=== PATIENT | female | born 1995 | race Caucasian/White ===

== ENCOUNTER 2021-06-26 14:55 | Emergency (ER) | payer OTHER, SELFPAY ==
[2021-06-26 15:03] VITALS: BP 150/109; PULSE 120; RESP 16; TEMP 36.8; O2SAT 99
--- NOTE | 2021-06-26 15:13 | XRR_ITS ---
PROCEDURE INFORMATION: Exam: XR Chest Exam date and time: 06/26/2021 3:13 PM Age: 26 years old Clinical indication: Pain; Angina pectoris; Additional info: Chest pain TECHNIQUE: Imaging protocol: XR of the chest. Views: 1 view. Total images: 1 COMPARISON: No relevant prior studies available. FINDINGS: Lungs: Unremarkable. No consolidation. Pleural spaces: Unremarkable. No pleural effusion. No pneumothorax. Heart/Mediastinum: Unremarkable. No cardiomegaly. Bones/joints: Unremarkable. XR/XR chest 1V portable [id number] IMPRESSION: No acute findings. Radiation Dose CTDIVOL = (mGy): DLP = (mGy-cm)
--- NOTE | 2021-06-26 15:34 | ED_ITS ---
HPI - General Adult General: Chief complaint: Chest Pain Stated complaint: CP RADIATING TO L SIDE OF CHEST INTO NECK, HTN Time Seen by Provider: 06/26/21 15:12 History of Present Illness: HPI narrative: CC: Chest Pain HPI: This is a [26] yo patient hx of smoking presenting to the ED complaining of acute sudden onset intermittent sharp chest pain now constant x 1 day with radiation to the L neck. No associated with shortness of breath, chest pain or dyspnea on exertion. Pain is not tearing in nature and does not radiate to the back. Pain not associated with vomiting or PO intake. Denies any recent sympathomimetic drug use. Patient denies any cough. Denies palpitations, dysphagia, diaphoresis, radiation of pain to bilateral arms, jaw. Denies F/N/V/D. Patient denies any recent immobility, surgery, unilateral leg swelling, or prior PE. Patient denies any orthopnea. Patient reports significant stress at home recently. Patient states that on multiple occasion, she has taken her blood pressure and has noticed that they were elevated. Onset: acutely 1 day ago, symptoms x 3 weeks Duration: ongoing for the last 1 day since 4 am Location: home Severity: mild/moderate Review of Systems Narrative: Constitutional: No fever, no chills. HEENT: No vision changes, no sore throat. CV: +chest pain, no palpitations. PULM: No cough, No dyspnea. GI: No abdominal pain, no N/V/D. : No dysuria, no frequency, no hematuria. MSKEL: No arthralgias, no edema. SKIN: No new rashes, no lesions. NEURO: No headache, no focal weakness. HEME: No easy bleeding or bruising. PSYCH: No change in mood or affect. PFS ED PFSH: Social History Smoking and tobacco status: current every day smoker Physical Exam Narrative: EXAM NARRATIVE: Head: Atraumatic, normocephalic Eyes: PERRL, EOMI, conjunctiva without injection ENT: Throat without erythema, lesions or exudate, MMM, no carotid bruit NECK: Supple, trachea midline, no JVD LUNGS: LCTA CV: RRR, S1,S2, no murmurs, rubs, gallops. 2+ peripheral pulses in UEs ABDOMEN: Soft, nontender, nondistended, BS x4, no rigidity, no guarding, no rebound EXTREMITY: Normal ROM, no pitting edema, no calf tenderness to palpation SKIN: No rash or erythema NEURO: Awake and alert. No focal motor deficits. PSYCH: Normal mood and affect. Course Vital Signs: Vital signs: Vital Signs Temperature 98.3 F 06/26/21 15:03 Pulse Rate 82 06/26/21 18:16 Respiratory Rate 17 06/26/21 18:16 Blood Pressure 128/87 06/26/21 18:16 Pulse Oximetry 100 06/26/21 18:16 MDM - General Adult MDM Narrative: Medical decision making narrative: [26]yo patient w/ hx of smok ing presenting to the ED with evaluation of new onset sharp chest pain x 3 weeks now worsening x 1 day (constant). HDS, pulse 2+ radially bilaterally, no signs of fluid overload, AAOx3, neuro exam intact. Given History and Exam today I have no suspicion for ACS, Pneumothorax, Pneumonia, Pulmonary Embolus, Tamponade, Aortic Dissection or other emergent problems as a cause for this presentation. Workup: ECG, CXR, CBC, BMP, Troponin Interventions: Ariana Findings: ECG: No overt evidence of STEMI, hyperacute T waves, localizable STD or T wave inversions. No evidence of Brugada?s sign, delta wave, epsilon wave, significantly prolonged QTc, or malignant arrhythmia. No Q waves. Other Labs unremarkable for emergent problems. CXR: Without PTX, PNA, or widened mediastinum Last Stress Test: never Last Heart Catheterization: never HEART Score: 0 [4:50pm] On reassessment, the patient is HDS, no complaints of persistent chest pain in the ED after evaluation. ECG is non-ischemic. Workup today is unremarkable. Doubt ACS/PE or other emergent causes of chest pain. Doubt ACS/PE or other emergent causes of chest pain. No suspicion for aortic dissection given no widened mediastinum, 2+ upper extremity pulses, or tearing pain. No suspicion for PE given no pleuritic chest pain, recent immobilization or surgery hemoptysis, or other VTE risk factors. EKG is non-ischemic. XR normal. Dimer wnl. I have given patient follow up with our supportive employment case manager to be seen by a PCP for further evaluation of chest pain. Patient aware of a call from our supportive employment case manager to schedule for appointment(s) and verbalizes understanding of the importance of following up. Rx: Tylenol PRN pain Disposition: Discharge. Strict return precautions discussed with the patient with full understanding. Advised patient to follow up promptly with a primary care provider in 24-48 hrs if the patient has persistent symptoms. Given return instructions for any crushing/tearing chest pain, focal weakness, syncope or any new or concerning issues. Lab Data: Labs: Lab Results 06/26/21 06/26/21 06/26/21 16:12 16:12 16:12 WBC 11.3 10^3/uL H 10 ^3/uL (4.0-10.0) RBC 4.70 10^6/uL 10^6 /uL (4.1-5.3) Hgb 14.0 g/dL g/dL (11.5-15.3) Hct 42.3 % % (37.0-47.0) MCV 90.0 fl fl (81-99) MCH 29.8 pg pg (28.0-34.0) MCHC 33.1 g/dL g/dL (30.0-36.0) RDW 11.8 % L % (12.1-15.1) Plt Count 347 10^3/cmm 10^3 /cmm (130-400) MPV 9.7 fL fL (7.4-10.4) Neut % (Auto) 63.7 % % Lymph % (Auto) 27.8 % % [place] % (Auto) 6.1 % % Eos % (Auto) 1.5 % % Baso % (Auto) 0.5 % % Neut # (Auto) 7.21 10^3/uL 10^3 /uL (1.8-7.7) Lymph # (Auto) 3.1 10^3/uL 10^3/ uL (0.8-4.8) [place] # (Auto) 0.7 10^3/uL 10^3/ uL (0.2-0.9) Eos # (Auto) 0.2 10^3/uL 10^3/ uL (0.0-0.8) Baso # (Auto) 0.1 10^3/uL 10^3/ uL (0.0-0.1) Nucleated RBC % (a uto) 0 % % Nucleated RBCs # 0.0 /100WBC /100W BC D-Dimer <= 0.27 ug/mIFEU ug/mIFEU (0-0.59) Sodium 136 mmol/L mmol/L (136-145) Potassium 3.4 mmol/L L mmol /L (3.5-5.1) Chloride 100 mmol/L mmol/L (98-107) Carbon Dioxide 23 mmol/L mmol/L (22-29) Anion Gap 16.4 (5-19) BUN 9 mg/dL mg/dL (6-20) Creatinine 0.7 mg/dL mg/dL (0.5-0.9) GFR Calculation 99.6 mL/min mL/mi n (90-130) Glucose 119 mg/dL H mg/dL (65-115) Calculated Osmolal ity 282 mOsm/kg L mOs m/kg (285-295) Calcium 9.0 mg/dL mg/dL (8.5-10.5) Troponin T Gen 5 n g/L Ser , Jamar i-Qnt 0.50 mIU/mL mIU/m L 06/26/21 16:12 WBC RBC Hgb Hct MCV MCH MCHC RDW Plt Count MPV Neut % (Auto) Lymph % (Auto) [place] % (Auto) Eos % (Auto) Baso % (Auto) Neut # (Auto) Lymph # (Auto) [place] # (Auto) Eos # (Auto) Baso # (Auto) Nucleated RBC % (a uto) Nucleated RBCs # D-Dimer Sodium Potassium Chloride Carbon Dioxide Anion Gap BUN Creatinine GFR Calculation Glucose Calculated Osmolal ity Calcium Troponin T Gen 5 n g/L 6 ng/L ng/L (0-10) Ser , Jamar i-Qnt Discharge Plan Discharge Patient Disposition: Home Clinical Impression: Chest pain Condition: Stable Prescriptions: New acetaminophen 500 mg tablet 500 mg PO Q6H PRN (Reason: chest pain) 5 Days Qty: 20 RF: 0 No Action norgestimate-ethinyl estradiol [Fkx-In-Mqtlvnhyk] 0.18/0.215/0.25 mg-25 mcg tablet 1 tab PO DAILY RF: 0 Discharge Orders: Discharge ED (Routine); Ordered 06/26/21 Ordered By: Jacqui Swift Discharge Diet: Advance as tolerated Discharge Activity: Resume usual activity Patient Instructions: Chest Pain (ED) Activity Restrictions/Additional Instructions: Come back to the emergency room if your chest pain worsens, have any fever or chills, worsening shortness of breath, worsening exertional lightheadedness, or any new or concerning complaints. Coding Level of Care Code ED Diet Aide for Roldan Cortés
[2021-06-26 15:42] VITALS: BP 124/89; PULSE 87; RESP 18; O2SAT 100
[2021-06-26 16:20] LABS: Basophils # 0.1 10^3/uL (0.0-0.1); Basophils % 0.5 %; Eosinophils # 0.2 10^3/uL (0.0-0.8); Eosinophils % 1.5 %; Hematocrit 42.3 % (37.0-47.0); Lymphocytes # 3.1 10^3/uL (0.8-4.8); Lymphocytes % 27.8 %; Mean Corpuscular HGB Conc 33.1 g/dL (30.0-36.0); Mean Corpuscular Hemoglobin 29.8 pg (28.0-34.0); Mean Platelet Volume 9.7 fL (7.4-10.4); Monocytes # 0.7 10^3/uL (0.2-0.9); Monocytes % 6.1 %; Neutrophils # 7.21 10^3/uL (1.8-7.7); Neutrophils % 63.7 %; Nucleated Red Blood Cells % 0 %; Platelet Count 347 10^3/cmm (130-400); Red Cell Distribution Width 11.8 % (12.1-15.1); White Blood Count 11.3 10^3/uL (4.0-10.0)
[2021-06-26] MEDS: sodium chloride 0.9% 1,000 ML 999 ML IV (16:30)
[2021-06-26] MEDS: acetaminophen 500 mg Tablet PO (16:30)
[2021-06-26 16:39] LABS: D Dimer <= 0.27 ug/mIFEU (0-0.59)
--- NOTE | 2021-06-26 16:42 | ECG_ITS ---
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 Measurements Intervals [place] Rate: 95 P: 61 MA: 141 QRS: 34 QRSD: 84 T: 56 QT: 335 QTc: 422 Interpretive Statements SINUS RHYTHM POSSIBLE LEFT ATRIAL ENLARGEMENT [-0.1mV P-WAVE IN V1/V2] No previous ECG available for comparison Electronically Signed On 06-26-2021 21:26:34 CDT by Toro Benítez M.D. [id number]
[2021-06-26 16:48] LABS: Troponin T (5th) Once 6 ng/L (0-10)
[2021-06-26 17:00] LABS: Anion Gap 16.4 (5-19); Blood Urea Nitrogen 9 mg/dL (6-20); Carbon Dioxide 23 mmol/L (22-29); Chloride 100 mmol/L (98-107); Glomerular Filtration Rate 99.6 mL/min (90-130); Glucose 119 mg/dL (65-115); Osmolality Calculated 282 mOsm/kg (285-295); Potassium 3.4 mmol/L (3.5-5.1); Sodium 136 mmol/L (136-145)
[2021-06-26 17:09] VITALS: BP 139/83; PULSE 90; RESP 13; O2SAT 100
[2021-06-26 18:16] VITALS: BP 128/87; PULSE 82; RESP 17; O2SAT 100
== END 2021-06-26 18:17 | disposition home or self-care (01) ==
PROVIDERS: Emergency Provider Emergency Medicine
DX: R07.9 Chest pain, unspecified (principal); F17.210 Nicotine dependence, cigarettes, uncomplicated
CPT/HCPCS: 71045; 80048; 84484; 84702; 85025; 85378; 93005; 96360; 99283; J7030

== ENCOUNTER 2022-11-05 10:01 | Emergency (ER) | payer OTHER, SELFPAY ==
[2022-11-05 10:03] VITALS: BP 179/103; PULSE 107; RESP 18; TEMP 36.7; O2SAT 96
--- NOTE | 2022-11-05 10:48 | W.ED.EAR ---
HPI - Ear Problem General: Chief complaint: Ear Stated complaint: face pain Time Seen by Provider: 11/05/22 10:30 History of Present Illness: 27-year-old female with history of poor dentition presenting to the emergency department with complaint of left TMJ pain. Describes the pain as aching in characterization, radiating into her TMJ area to her lower jaw and to her tragus of her ear. States she has had some subjective fevers at home without measured fevers. Is attempting to establish care with a dentist on Monday. Active 1 pack/day smoker with allergies to Augmentin and fluoroquinolones reported. MD Complaint: ear pain Location: left ear Relieving factors: nothing Associated symptoms: Reports fever(s); Denies headache(s), hearing loss, neck pain or tinnitus Review of Systems General: Reports: 10 or more systems reviewed and unremarkable except in HPI and below Const: Reports: fever(s); Denies: chills, body aches or change in appetite Eyes: Denies: change in vision or blurry vision ENMT: Denies: throat pain, uvular edema, hoarseness, mouth pain (Denies mouth pain) or tinnitus Card: Denies: chest pain, palpitations or irregular heart rhythm Resp: Denies: dyspnea or productive cough GI: Denies: abdominal pain or nausea : Denies: flank pain or difficulty voiding Musc: Denies: neck pain Skin/Breast: Denies: rash, pruritus, erythema or photosensitivity Neuro: Denies: headache(s) or numbness in extremities Psych: Denies: anxiety or depression Endo: Denies: polydipsia or tired all the time Giorgio/Lymph: Denies: easy bruising [facility] ED PFSH: Social History Smoking and tobacco status: current every day smoker Physical Exam Const: COMMON NORMALS: no acute distress, average body habitus and patient oriented x3 HENMT: COMMON NORMALS: normocephalic and atraumatic HEAD & SCALP: normocephalic and atraumatic TEETH & GINGIVA: Yes abnormal tooth and associated gingiva (Multiple dental caries on upper and lower molars. ), Yes caries (Right lower posterior most molar fractured, loose, no purulence noted) and Yes other (No associated gum ulcerations, no tongue or floor mouth involvement, uvula ) THROAT: no uvular edema Eye: COMMON NORMALS: Equal, round and reactive pupils present, EOMs intact bilaterally and no scleral icterus PUPIL: Yes Equal, round and reactive pupils present Chest: COMMONS NORMALS: normal inspection of the chest Breast/axilla inspection: Yes no chest deformity, asymmetry, normal contours, no nodules, masses, tenderness Resp: COMMON NORMALS: normal respiratory effort and No retractions GI: COMMON NORMALS: Soft to palpation and non-tender PALPATION: Yes Soft to palpation : COMMON NORMALS: Yes normal external appearance Neuro: COMMON NORMALS: patient oriented x3 Psych: COMMON NORMALS: mental status grossly normal and Normal thought process present THOUGHT PROCESS: Normal thought process present Course Vital Signs: Vital signs: Vital Signs Temperature 98.0 F 11/05/22 10:03 Pulse Rate 107 H 11/05/22 10:03 Respiratory Rate 18 11/05/22 10:03 Blood Pressure 179/103 11/05/22 10:03 Pulse Oximetry 96 11/05/22 10:03 Oxygen Delivery Me thod 11/05/22 10:03 MDM - Ear Medical Decision Making 26-year-old female presenting with right-sided jaw pain and tooth pain. Examination above without trismus, floor of mouth erythema, gum involvement, obvious purulence. Given TMJ pain with clear tympanic membranes bilaterally feel may be consistent with referred pain from the jaw. Given prescription for clindamycin (allergic to Augmentin and fluoroquinolones by report) and told to follow-up on Monday. Also advised an fcue-cku-dxyhehw pain medications. Vitals demonstrate initial tachycardia that I considered could be indicative of systemic infection. Given localized infection and subjective fevers without measured fever, will treat in the outpatient setting at this time. Advised return to the emergency department for any changes in her condition. Discharge Plan Discharge Patient Disposition: Home, Self-Care w Plan Readm Clinical Impression: Odontogenic infection of jaw Condition: Stable Prescriptions: New clindamycin HCl 300 mg capsule 300 mg PO Q8H 7 Days Qty: 21 0RF No Action norgestimate-ethinyl estradiol [Ixp-Tc-Aqsvfpgcj] 0.18/0.215/0.25 mg-25 mcg tablet 1 tab PO DAILY Discharge Orders: Discharge ED (Routine); Ordered 11/05/22 Ordered By: Arun Lafleur Referrals: Arun Lafleur MD [Emergency Provider] - (Make a immediate appointment for dental work. I diagnosed you with a periodontal infection. You have been prescribed clindamycin 300 mg to take 3 times daily every 8 hours. This medication has a side effect of diarrhea. Make sure to drink copious amounts of water. Activity yogurt can help with avoiding antibiotic induced diarrhea. Additionally take 1000 mg of acetaminophen and 40 mg of ibuprofen at breakfast lunch and dinner. Return if your symptoms are not improved or worsen.) Discharge Diet: Usual diet Discharge Activity: Resume usual activity Coding Level of Care Code ED Cross Tie Turner for Roldan Cortés
[2022-11-05 11:26] VITALS: BP 144/103; PULSE 88; RESP 18; TEMP 36.7; O2SAT 98
== END 2022-11-05 11:38 | disposition home or self-care, planned readmission (81) ==
PROVIDERS: Emergency Provider General Practice
DX: M27.2 Inflammatory conditions of jaws (principal); F17.210 Nicotine dependence, cigarettes, uncomplicated
CPT/HCPCS: 99283

== ENCOUNTER 2025-03-15 11:44 | Emergency (ER) | payer OTHER, SELFPAY ==
[2025-03-15 11:46] VITALS: BP 175/98; PULSE 100; RESP 16; TEMP 36.7; O2SAT 100; BMI 37.5
--- OUTSIDE RECORDS SUMMARY | 2025-03-15 11:52 | XMS_ITS | Clinical Summary ---
Author Organization [facility] Address [address] [place]: Epic Prelude ADT EMIR RICHEY [address] Care Team Providers Care Rn Care Manager Name Role Phone Unavailable Primary Care Provider Unavailabl e Allergies Active Allergy Reactions Criticality Noted Date Comments Latex Rash Low 10/06/2014 Medications norgestimate-eth inyl estradiol (ORTHO TRI-CYCLEN LO, 28, ORAL) Take 1 Tab by mouth daily. 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 Gender Identity Not on file Sexual Orientation Not on file Last Filed Vital Signs Vital Sign Reading Time Taken Comments Blood Pressure 140/78 09/04/2015 5:53 PM CABINET INSTALLER Pulse - - Temperature 37 C (98.6 F) 09/04/2015 4:39 PM CABINET INSTALLER Respiratory Rate 14 09/04/2015 5:53 PM CABINET INSTALLER Oxygen Saturation - - Inhaled Oxygen Concentration - - Weight 86.8 kg (191 lb 6.4 oz) 09/04/2015 4:39 P M CABINET INSTALLER Height 170.2 cm (5' 7 ) 09/04/2015 4:39 PM CABINET INSTALLER Body Mass Index 29.98 09/04/2015 4:39 PM CABINET INSTALLER Plan of Treatment Health Maintenance Due Date Last Done Comments DTAP/TDAP/TD VACCINES (1 - Tdap) 01/05/2012 HEPATITIS B VACCINES (1 of 3 - 19+ 3-dose series) 01/05/2012 HPV/Cotest (21-29) 2014 CERVICAL CANCER SCREENING 2023 HPV/Cotest (30-65) 2023 PAP SMEAR 2023 INFLUENZA VACCINE (#1) 2024 HPV VACCINES Aged Out No longer eligi ble based on patient's age to complete this topic
--- OUTSIDE RECORDS SUMMARY | 2025-03-15 11:52 | XMS_ITS | Clinical Summary ---
Author Organization [facility] Address [address] [place] [address] Phone Care Team Providers Care Laundry Housekeeper Name Role Phone Unavailable Primary Care Provider Unavailabl e Allergies Active Allergy Reactions Criticality Noted Date Comments Latex Rash Low 10/06/2014 Medications NORGESTIMATE-ETH INYL ESTRADIOL (ORTHO TRI-CYCLEN LO, 28, ORAL) Take 1 Tab by mouth daily. Active Active Problems Problem Noted Date Diagnosed Date Tobacco use 08/08/2015 Social History Tobacco Use Types Packs/Day Years Used Date Smoking Tobacco: Every Day Cigarettes Smokeless Tobacco: Never Alcohol Use Standard Drinks/Week Comments Yes 0 (1 standard drink = 0.6 oz pur e alcohol) maybe once a month Comments No Sex and Gender Information Value Date Recorded Sex Assigned at Not on file Legal Sex Female 3:08 PM [employer] Gender Identity Not on file Sexual Orientation Not on file Last Filed Vital Signs Vital Sign Reading Time Taken Comments Blood Pressure 140/78 09/04/2015 5:53 PM [employer] Pulse - - Temperature 37 C (98.6 F) 09/04/2015 4:39 PM [employer] Respiratory Rate 14 09/04/2015 5:53 PM [employer] Oxygen Saturation 99% 09/04/2015 5:53 PM [employer] Inhaled Oxygen Concentration - - Weight 86.8 kg (191 lb 6.4 oz) 09/04/2015 4:39 P M [employer] Height 170.2 cm (5' 7 ) 09/04/2015 4:39 PM [employer] Body Mass Index 29.98 09/04/2015 4:39 PM [employer] Plan of Treatment Health Maintenance Due Date Last Done Comments DTAP/TDAP/TD VACCINES (1 - Tdap) 01/05/2012 HEPATITIS B VACCINES (1 of 3 - 19+ 3-dose series) 01/05/2012 HPV/Cotest (21-29) 2014 CERVICAL CANCER SCREENING 2023 HPV/Cotest (30-65) 2023 PAP SMEAR 2023 INFLUENZA VACCINE (#1) 2024 HPV VACCINES Aged Out No longer eligi ble based on patient's age to complete this topic Insurance [id number]
--- OUTSIDE RECORDS SUMMARY | 2025-03-15 11:52 | XMS_ITS | Patient Health Record ---
Author Organization [facility] Address [address] [place] [address] Support Name Relationship Address Phone Sheila Tinajero Guarantor Unknown [phone] Allergies Allergen (clinical drug ingredient) Drug/Non Drug Allergy documented on EMR Reaction Allergy Type Onset Date Status bismuth subsalicylate , Drug Allergy Active Reason For Referral No Information Plan Of Treatment No Information
--- NOTE | 2025-03-15 12:07 | ECG_ITS ---
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 Measurements Intervals [place] Rate: 87 P: 39 NV: 127 QRS: 9 QRSD: 97 T: 27 QT: 354 QTc: 428 Interpretive Statements SINUS RHYTHM Compared to ECG 06/26/2021 15:19:59 No significant changes Electronically Signed On 03-20-2025 09:38:28 CDT by Toro Benítez M.D. [email or web address]
--- NOTE | 2025-03-15 12:08 | W.ED.GENADLT ---
HPI - General Adult General: Chief complaint: General Medical Stated complaint: cant sweat / abd pain / daniel Time Seen by Provider: 03/15/25 11:52 Source: patient and family Mode of arrival: ambulatory Limitations: no limitations History of Present Illness: This patient made her way to the Emergency Department today because she still feels fatigued and washed out and no energy since she had a what she thinks was an episode of heat exhaustion approximately 3 to 4 days ago. She states that she was out in the heat for several hours and got overheated and had a episode of collapse associated with the heat. She states that she did not fall or injure herself but just collapsed to the ground for several minutes. There was no associated chest pain or shortness of breath palpitations etc. She states that she was able to get herself out of the heat at that time and subsequently has continued to try to hydrate herself and otherwise resume normal intake but states that she still has generalized malaise. She denies any recent illness to include fevers, cough, sore throat vomiting but states she has had loose stools. No blood in her stools. Some mild abdominal cramping associated with it. She states that she does not take any prescribed medications that might be associated with worsening in her heat tolerance. She has never had a prior history of heat exhaustion or heat stroke etc. She states that she has been urinating normally. States she has normal menstrual periods and does not use any contraceptive method at this time. He has not missed a period. She does use tobacco products and occasional alcohol but no street drugs other than occasional THC. She otherwise is in good health has no history of cardiovascular disease etc. Associated symptoms: Reports malaise; Deny chest pain, dyspnea, headache(s), nausea, rash, palpitations or vomiting Related Data Home Medications ?Medication ?Instructions ?Recorded ?Confirmed Lactobacillus acidophilus and 1 cap PO DAILY 03/15/25 03/15/25 rhamnosus 15 billion cell capsule (Probiotic) acetaminophen 500 mg tablet 500 mg PO Q6H PRN Fever Or Pain 03/15/25 03/15/25 (Tylenol Extra Strength) ashwagandha extract 120 mg capsule 120 mg PO BEDTIME 03/15/25 03/15/25 ferrous sulfate 325 mg (65 mg 325 mg PO DAILY 03/15/25 03/15/25 iron) tablet (Iron (ferrous sulfate)) folic acid 800 mcg tablet 0.8 mg PO DAILY 03/15/25 03/15/25 ibuprofen 200 mg tablet (Advil) 800 mg PO DAILY 03/15/25 03/15/25 inulin 2 gram chewable tablet 4 g PO DAILY 03/15/25 03/15/25 magnesium glycinate 100 mg (as 100 mg PO DAILY 03/15/25 03/15/25 glycinate) tablet rhodiola root extract 250 mg 250 mg PO DAILY 03/15/25 03/15/25 capsule Allergies Allergy/AdvReac Type Severity Reaction Status Date / Time amoxicillin (From Augmentin) Allergy ALGY-Hives Verified 12/13/24 09:35 ciprofloxacin Allergy ALGY-Swell Verified 12/13/24 09:35 Lip/Tongue/Throat clavulanic acid (From Allergy ALGY-Hives Verified 12/13/24 09:35 Augmentin) latex Allergy ALGY-Rash Verified 12/13/24 09:35 Review of Systems Const: Reports: malaise; Denies: fever(s) or chills Eyes: Denies: change in vision ENMT: Denies: throat pain, odynophagia, nasal discharge or nasal congestion Card: Denies: chest pain, palpitations or swelling of feet/ankles Resp: Denies: dyspnea, productive cough, non-productive cough or wheezing GI: Reports: diarrhea; Denies: abdominal pain, nausea or vomiting : Denies: flank pain, difficulty voiding, dysuria or vaginal discharge Musc: Denies: neck pain, back pain, extremity pain or extremity swelling Skin/Breast: Denies: rash or pruritus Neuro: Denies: headache(s), numbness in extremities or weakness in extremities Psych: Denies: anxiety or depression Endo: Denies: polyuria or polydipsia PFSH ED PFSH: Social History Smoking and tobacco/nicotine status: current every day tobacco/nicotine user Physical Exam Narrative: EXAM NARRATIVE: She is alert no acute distress makes good eye contact and speech is goal-directed. Const: COMMON NORMALS: no acute distress and patient oriented x3 GENERAL APPEARANCE: cooperative and comfortable NUTRITIONAL APPEARANCE: overweight HENMT: COMMON NORMALS: atraumatic, Normal nasal mucous membranes and turbinates present, moist oral mucous membranes and oropharynx normal HEAD & SCALP: atraumatic FACE & SINUS: face symmetric NOSE: Normal nasal mucous membranes and turbinates present Eye: COMMON NORMALS: Equal, round and reactive pupils present, EOMs intact bilaterally and conjunctivae normal CONJUNCTIVA: Yes conjunctivae normal PUPIL: Yes Equal, round and reactive pupils present Neck/C-Spine: COMMON NORMALS: full ROM, no lymphadenopathy and supple Resp: COMMON NORMALS: normal respiratory effort, No retractions, No use of accessory muscles and clear to auscultation bilaterally AUSCULTATION: clear to auscultation bilaterally Cardio: COMMON NORMALS: regular rate, regular rhythm, No murmurs present (Cardio) and Peripheral pulses 2+ throughout RATE: regular rate RHYTHM: regular rhythm PERIPHERAL PULSES: Peripheral pulses 2+ throughout GI: COMMON NORMALS: Normal to inspection, nondistended, normoactive bowel sounds present, Soft to palpation, non-tender and no masses PALPATION: Yes Soft to palpation : COMMON NORMALS: Yes no CVA tenderness BLADDER/KIDNEY EXAM: Yes no CVA tenderness Back/Pelvis: COMMON NORMALS: no CVA tenderness, thoracic and lumbar spine normal to inspection, no thoracic nor lumbar tenderness and thoraco-lumbar ROM normal Extremity: COMMON NORMALS: normal to inspection, full ROM, no calf tenderness and no pedal edema Neuro: COMMON NORMALS: patient oriented x3, moves all extremities, no focal motor deficits and no sensory deficits noted Psych: COMMON NORMALS: mental status grossly normal Skin: COMMON NORMALS: no rashes or lesions noted, no wounds, turgor normal and no jaundice GENERAL SKIN EXAM: no rashes or lesions noted and turgor normal Course Reevaluation(s): Reevaluation #1: Patient was reevaluated. Her IV is almost completely infused. She states she is feeling better and she was able to ambulate by about the emergency department without any difficulty. We reviewed her current laboratories and the reassuring nature. We also reviewed that many times in a heat related event/heat exhaustion etc. that some people take several days to fully recover. She does not have any evidence of electrolyte disturbance, anemia, other conditions that might contribute to her symptoms. No evidence of an emergency medical condition at this time we discussed expected course, keeping well-hydrated, avoiding heat and returning to the emergency department for any worsening or concerning symptoms. Time: 14:21 Vital Signs: Vital signs: Vital Signs Temperature 98.1 F 03/15/25 11:46 Pulse Rate 100 03/15/25 11:46 Respiratory Rate 16 03/15/25 11:46 Blood Pressure 175/98 03/15/25 11:46 Pulse Oximetry 100 03/15/25 11:46 Oxygen Delivery Me thod Room Air 03/15/25 11:46 MDM - General Adult Medical Decision Making Patient presented as noted in history of present illness. She had what sounds like a heat exhaustion heat stress episode. No evidence that suggest she had syncope due to palpitations central nervous system event or other potential etiologies. Her primary concern is that she is not seem to recover back to her regular self. This is not despite her assertion that she has been attempting to orally rehydrate herself and engage in a normal diet. 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 Her clinical exam is reassuring without any evidence or stigmata of concern. She was placed on the monitor her laboratories were drawn and she was given IV hydration. Laboratories are reassuring without any evidence of anemia, electrolyte disturbance, CK elevation, or obvious urinary tract infection or other concerning biochemical perturbations. She remained in sinus rhythm and improved with IV hydration and was ambulatory without symptoms in the emergency department. At this point she does not have any evidence of a significant sequelae of dehydration or heat stress. She is suitable to be discharged but also we reviewed return precautions with she and spouse. Lab Data I reviewed the patient's lab results. 03/15/25 12:33 03/15/25 12:33 Laboratory Results WBC 9.93 10^3/uL (3.29-11.43) 03/15/25 12:33 RBC 4.77 10^6/uL (3.85-5.65) 03/15/25 12:33 Hgb 14.40 g/dL (11.27-16.99) 03/15/25 12:33 Hct 42.4 % (36-47) 03/15/25 12:33 MCV 88.9 fl (85-98) 03/15/25 12:33 MCH 30.2 pg (27-33) 03/15/25 12:33 MCHC 34.0 g/dL (30-55) 03/15/25 12:33 RDW 11.8 % (12.1-15.1) L 03/15/25 12:33 Plt Count 357 10^3/cmm (157-399) 03/15/25 12:33 MPV 9.4 fL (7.4-10.4) 03/15/25 12:33 Neut % (Auto) 52.7 % 03/15/25 12:33 Lymph % (Auto) 38.5 % 03/15/25 12:33 [place] % (Auto) 5.9 % 03/15/25 12:33 Eos % (Auto) 1.8 % 03/15/25 12:33 Baso % (Auto) 0.7 % 03/15/25 12:33 Neut # (Auto) 5.23 10^3/uL (1.8-7.7) 03/15/25 12:33 Lymph # (Auto) 3.8 10^3/uL (0.8-4.8) 03/15/25 12:33 [place] # (Auto) 0.6 10^3/uL (0.2-0.9) 03/15/25 12:33 Eos # (Auto) 0.2 10^3/uL (0.0-0.8) 03/15/25 12:33 Baso # (Auto) 0.1 10^3/uL (0.0-0.1) 03/15/25 12:33 Nucleated RBC % (auto) 0 % 03/15/25 12:33 Nucleated RBCs # 0.0 /100WBC 03/15/25 12:33 Sodium 138 mmol/L (136-145) 03/15/25 12:33 Potassium 3.6 mmol/L (3.5-5.1) 03/15/25 12:33 Chloride 99 mmol/L (98-107) 03/15/25 12:33 Carbon Dioxide 24 mmol/L (22-29) 03/15/25 12:33 Anion Gap 18.6 (5-19) 03/15/25 12:33 BUN 13 mg/dL (6-20) 03/15/25 12:33 Creatinine 0.8 mg/dL (0.5-0.9) 03/15/25 12:33 GFR Calculation 83.1 mL/min (90-130) L 03/15/25 12:33 Glucose 78 mg/dL (65-115) 03/15/25 12:33 Calculated Osmolality 285 mOsm/kg (285-295) 03/15/25 12:33 Calcium 9.5 mg/dL (8.5-10.5) 03/15/25 12:33 Total Bilirubin 1.0 mg/dL (0.15-1.2) 03/15/25 12:33 AST 12 U/L (0-32) 03/15/25 12:33 ALT 15 U/L (0-33) 03/15/25 12:33 Alkaline Phosphatase 69 U/L (35-105) 03/15/25 12:33 Creatine Kinase 85 U/L (26-192) 03/15/25 12:33 Total Protein 7.6 g/dL (6.6-8.7) 03/15/25 12: Albumin 4.7 g/dL (3.5-5.2) 03/15/25 12: Globulin 2.9 g/dL (1.3-4.6) 03/15/25 12:33 TSH 2.60 uIU/mL (0.27-4.20) 03/15/25 12:33 HCG, Qual Negative (Negative) 03/15/25 12:28 Urine Color Yellow (Yellow) 03/15/25 12:28 Urine Appearance Clear (CLEAR) 03/15/25 12:28 Urine pH 5.0 (5-7) 03/15/25 12:28 Ur Specific [place] 1.010 (1.005-1.030) 03/15/25 12:28 Urine Protein Negative (Negative) 03/15/25 12:28 Urine Glucose (UA) Negative (Normal) 03/15/25 12:28 Urine Ketones Negative (Negative) 03/15/25 12:28 Urine Blood Negative (Negative) 03/15/25 12:28 Urine Nitrate Negative (Negative) 03/15/25 12:28 Urine Bilirubin Negative (Negative) 03/15/25 12:28 Urine Urobilinogen 0.2 mg/dL (Negative) 03/15/25 12:28 Ur Leukocyte Esterase Negative (Negative) 03/15/25 12:28 Urine RBC 0-2 /hpf (0-2) 03/15/25 12:28 Urine WBC 0-5 /hpf (0-5) 03/15/25 12:28 Ur Squamous Epith Cells 0-5 /hpf (0-5) 03/15/25 12:28 Amorphous Sediment Not Reportable 03/15/25 12:28 Urine Bacteria None seen /hpf (NONE) 03/15/25 12:28 Hyaline Casts 0.40 /lpf 03/15/25 12:28 No radiology studies performed this visit EKG Data EKG 1: I personally reviewed and interpreted this EKG as follows: Interpretation: Review of resting EKG reveals a ventricular rate of 87 bpm. Normal AR interval normal QRS duration normal corrected QT interval. Normal axis. She has irregular baseline in limb leads I to II and aVR. No significant ST-T wave changes are noted. Discharge Plan Discharge Patient Disposition: Home Clinical Impression: Heat exhaustion Qualifiers: Encounter type: initial encounter Qualified Code(s): T67.5XXA - Heat exhaustion, unspecified, initial encounter Condition: Stable Prescriptions: No Action acetaminophen [Tylenol Extra Strength] 500 mg Tablet 500 mg PO Q6H PRN (Reason: Fever Or Pain) ferrous sulfate [Iron (ferrous sulfate)] 325 mg (65 mg iron) Tablet 325 mg PO DAILY ibuprofen [Advil] 200 mg Tablet 800 mg PO DAILY folic acid 800 mcg Tablet 0.8 mg PO DAILY magnesium glycinate 100 mg Tablet 100 mg PO DAILY Fiber Gummies 2 gram Tablet,Chewable 4 g PO DAILY Probiotic 15 billion cell Capsule 1 cap PO DAILY ashwagandha extract 120 mg Capsule 120 mg PO BEDTIME rhodiola root extract 250 mg Capsule 250 mg PO DAILY Discharge Orders: Discharge ED (Routine); Ordered 03/15/25 Ordered By: Rakesh Cuevas Discharge Diet: Usual diet Discharge Activity: Increase activity as tolerated Patient Instructions: Heat Exhaustion (ED), Opioid Safety, Pain Management, Patient Portal & Margaux Instructions Activity Restrictions/Additional Instructions: As we discussed after heat stress or heat exhaustion event some people do not feel 100% back to normal for several days after the event. It is an important to keep yourself well-hydrated and drink at least 2 quarts of water and/or sports drinks daily. Also avoid excessive exposure to hot environments for the next several days. If it anytime your symptoms do not resolve or worsen or new symptoms develop you are welcome to return to the emergency department for reevaluation. Stand Alone Forms: Work/School Release Print Language: Gu[place]an Coding Level of Care Code ED Side Stapler for Roldan Cortés
[2025-03-15] MEDS: lactated ringers 1,000 ML 999 ML IV (12:40)
[2025-03-15 12:41] LABS: Basophils # 0.1 10^3/uL (0.0-0.1); Basophils % 0.7 %; Eosinophils # 0.2 10^3/uL (0.0-0.8); Eosinophils % 1.8 %; Hematocrit 42.4 % (36-47); Lymphocytes # 3.8 10^3/uL (0.8-4.8); Lymphocytes % 38.5 %; Mean Corpuscular Hemoglobin 30.2 pg (27-33); Mean Corpuscular Volume 88.9 fl (85-98); Mean Platelet Volume 9.4 fL (7.4-10.4); Monocytes # 0.6 10^3/uL (0.2-0.9); Monocytes % 5.9 %; Neutrophils # 5.23 10^3/uL (1.8-7.7); Neutrophils % 52.7 %; Nucleated Red Blood Cells % 0 %; Platelet Count 357 10^3/cmm (157-399); Red Blood Count 4.77 10^6/uL (3.85-5.65); Red Cell Distribution Width 11.8 % (12.1-15.1); White Blood Count 9.93 10^3/uL (3.29-11.43)
[2025-03-15 12:45] LABS: HCG Qualitative Urine. Negative (Negative)
[2025-03-15 12:47] LABS: Bilirubin Urine Negative (Negative); Blood Urine Negative (Negative); Glucose Urine UA Negative (Normal); Ketones Urine Negative (Negative); Leukocyte Esterase Urine Negative (Negative); Nitrate Urine Negative (Negative); Protein Urine Negative (Negative); Urine Appearance Clear (CLEAR); Urine Color Yellow (Yellow); Urobilinogen Urine 0.2 mg/dL (Negative)
[2025-03-15 12:52] LABS: Add Urine Microscopic? YES; Bacteria Urine None Seen /hpf; RBC Urine 0-2 /hpf (0-2); Squamous Epithelial Cell Urine 0-5 /hpf (0-5); WBC Urine 0-5 /hpf (0-5)
[2025-03-15 12:54] LABS: Add Urine Culture? No
[2025-03-15 13:08] LABS: Alanine Aminotransferase 15 U/L (0-33); Albumin Level 4.7 g/dL (3.5-5.2); Alkaline Phosphatase 69 U/L (35-105); Anion Gap 18.6 (5-19); Aspartate Amino Transferase 12 U/L (0-32); Blood Urea Nitrogen 13 mg/dL (6-20); Calcium 9.5 mg/dL (8.5-10.5); Carbon Dioxide 24 mmol/L (22-29); Chloride 99 mmol/L (98-107); Creatine Phosphokinase 85 U/L (26-192); Globulin 2.9 g/dL (1.3-4.6); Glomerular Filtration Rate 83.1 mL/min (90-130); Glucose 78 mg/dL (65-115); Osmolality Calculated 285 mOsm/kg (285-295); Potassium 3.6 mmol/L (3.5-5.1); Sodium 138 mmol/L (136-145); Total Protein 7.6 g/dL (6.6-8.7)
== END 2025-03-15 14:36 | disposition home or self-care (01) ==
PROVIDERS: Emergency Provider Emergency Medicine
DX: T67.5XXA Heat exhaustion, unspecified, initial encounter (principal); X58.XXXA Exposure to other specified factors, initial encounter; Z72.0 Tobacco use
CPT/HCPCS: 36415; 80053; 81001; 81025; 82550; 84443; 85025; 93005; 96360; 96361; 99284; J7120